=== PATIENT | female | born 1985 | race Caucasian/White ===

== ENCOUNTER 2021-04-04 13:07 | Inpatient (IN) | payer BC ==
[~2021-04-04] VITALS: Ht 162.6 cm; Wt 57.3 kg
[2021-04-04] VITALS (16 sets, daily range): BP systolic 74–111; BP diastolic 45–76
[2021-04-04] MEDS ORDERED: ondansetron/PF 4mg/2ml inj IV ONE ×2 (13:55→15:00)
[2021-04-04] MEDS ORDERED: normal saline 1000ML IV soln IVB ONE (13:55)
[2021-04-04] MEDS ORDERED: morphine 4 MG/ML inj SYRINge IV ONE ×2 (13:55→15:00)
[2021-04-04] MEDS ORDERED: ondansetron/PF 4mg/2ml inj IV PRN ×2 (14:05→14:30)
[2021-04-04] MEDS: dextrose 5%-1/2 normal saline 1,000 ML IV SCH ×2 (14:05→20:00)
[2021-04-04] MEDS ORDERED: HYDROcodone/acetaminophen 5mg/325mg tablet PO PRN ×2 (14:05→19:20)
[2021-04-04] MEDS ORDERED: acetaminophen 325mg tablet PO PRN ×2 (14:05)
[2021-04-04] MEDS ORDERED: HYDROcodone/acetaminophen 10/325mg tab PO PRN (14:05)
[2021-04-04] MEDS ORDERED: mag hydrox/Alum hydrox/simeth 30ml oral suspension PO PRN (14:05)
[2021-04-04] MEDS ORDERED: morphine 2 MG/ML inj. syringe IV PRN ×3 (14:05→14:30)
[2021-04-04] MEDS ORDERED: magnesium hydroxide 30ml (MOM) UD suspension PO PRN (14:05)
[2021-04-04] MEDS ORDERED: morphine 4 MG/ML inj SYRINge IV PRN (14:30)
[2021-04-04] MEDS ORDERED: proCHLORperazine 10 MG/2 ml inj IV PRN (14:30)
[2021-04-04] MEDS ORDERED: meperidine/PF 25mg/ml syringe IV PRN ×3 (14:30)
[2021-04-04] MEDS ORDERED: ringers solution, lacted 1,000 ML IV SCH (14:30)
[2021-04-04] MEDS ORDERED: NO HOME MEDS (14:31)
[2021-04-04] MEDS: piperacillin/tazo 4.5gm/100ml 100 ML IV SCH ×3 (15:26→20:00)
[2021-04-04] MEDS ORDERED: piperacillin/tazo 4.5gm/100ml 100 ML IV SCH (16:00)
[2021-04-04] MEDS ORDERED: LIDOcaine 1% 30ml preserv. free vial ONE (17:15)
[2021-04-04] MEDS ORDERED: BUPIVAcaine 0.5% inj/PF 30 ML ONE (17:15)
[2021-04-04] MEDS ORDERED: midazolam 1 mg/ML 2ml injection ONE (18:02)
[2021-04-04] MEDS ORDERED: fentaNYL/PF 50MCG/1 ML 2ML syringe ONE (18:02)
[2021-04-04] MEDS ORDERED: BUPIVAcaine 0.5% inj/PF 30 ml vial IJ ONE (18:15)
[2021-04-04] MEDS ORDERED: ceFOXitin 1000 MG inj ONE (18:16)
[2021-04-04] MEDS ORDERED: propofol inj 20 ML IV ONE (18:17)
[2021-04-04] MEDS ORDERED: rocuronium 10mg/ml inj IV ONE (18:17)
[2021-04-04] MEDS ORDERED: LIDOcaine 2% (20mg/ml) 5ml vial ONE (18:17)
[2021-04-04] MEDS ORDERED: ondansetron/PF 4mg/2ml inj ONE (18:18)
[2021-04-04] MEDS ORDERED: meperidine/PF 25mg/ml syringe ONE (18:43)
[2021-04-04] MEDS ORDERED: neostigmine methylsulfate 1 MG/ML 10ml vial ONE (19:02)
[2021-04-04] MEDS ORDERED: ketorolac trometh. 30mg/ml inj. ONE (19:08)
--- NOTE | 2021-04-04 19:12 | NUR ---
Received from OR via , accompanied by Anesthesiologist DR PEPE and report given by Anesthesiolgist. PT PRESENT WITH 20G LEFT FOREARM, ABD DRESSING DRY AND INTACT, VSS.
[2021-04-04] MEDS: docusate sod 100mg capsule PO SCH (20:00)
[2021-04-04] MEDS: acetaminophen 325mg tablet PO SCH (20:00)
[2021-04-04] MEDS: ketorolac trometh. 30mg/ml inj. IV SCH (20:00)
[2021-04-04] MEDS: heparin, porcine 5000 units/ml vial SQ SCH (20:00)
[2021-04-05] MEDS: piperacillin/tazo 4.5gm/100ml 100 ML IV SCH
[2021-04-05 00:30] VITALS: BP 90/88
[2021-04-05 06:21] LABS: BASOPHILS % (AUTO) 0 % (0-1); EOSINOPHILS % (AUTO) 0 % (0-6); HEMATOCRIT 33.5 % (35.0-45.0); HEMOGLOBIN 11.3 g/dl (12.0-16.0); LYMPHOCYTES # (AUTO) 0.7 X10'3 (1.1-4.8); MEAN CORPUSCULAR HGB CONC 33.7 g/dL (33.0-36.5); MEAN CORPUSCULAR VOLUME 88.9 FL (78-98); MEAN PLATELET VOLUME 8.7 FL (7.4-10.4); MONOCYTES # (AUTO) 0.4 X10'3 (0-0.9); MONOCYTES % (AUTO) 3.5 % (2-12); NEUTROPHILS # (AUTO) 9.1 X10'3 (1.8-7.7); NEUTROPHILS % (AUTO) 89.5 % (42-75); PLATELET COUNT 189 X10'3 (140-440); RED BLOOD COUNT 3.77 X10'6 (4.20-5.60); RED CELL DISTRIBUTION WIDTH 13.6 % (11.5-14.5); WHITE BLOOD COUNT 10.2 X10'3 (4.5-11.0)
--- NOTE | 2021-04-05 06:23 | NUR ---
Problems reprioritized. Patient report given, questions answered & plan of care reviewed with Natalie.
[2021-04-05 06:32] LABS: ALBUMIN 2.8 G/DL (3.4-5.0); ANION GAP 9 (8-16); BLOOD UREA NITROGEN 8 MG/DL (7-18); BUN/CREATININE RATIO 13.6 (6.6-38.0); CALCIUM 7.6 MG/DL (8.5-10.1); CHLORIDE 108 MMOL/L (99-107); CREATININE 0.59 MG/DL (0.40-0.90); GLUCOSE 119 MG/DL (70-104); POTASSIUM 3.8 MMOL/L (3.5-5.1); SODIUM 139 MMOL/L (135-145); TOTAL CARBON DIOXIDE 21.9 MMOL/L (24-32); eGFR > 90 ML/MIN
[2021-04-05 07:28] VITALS: BP 82/52
[2021-04-05] MEDS: ketorolac trometh. 30mg/ml inj. IV SCH (08:00)
[2021-04-05] MEDS: docusate sod 100mg capsule PO SCH (08:28)
[2021-04-05] MEDS: acetaminophen 325mg tablet PO SCH ×2 (08:31→15:20)
[2021-04-05] MEDS: heparin, porcine 5000 units/ml vial SQ SCH (08:34)
[2021-04-05 11:00] VITALS: BP 90/59
[2021-04-05 11:38] VITALS: BP 90/59
[2021-04-05] MEDS ORDERED: AMOX-422 PO (13:10)
--- NOTE | 2021-04-05 16:15 | NUR ---
pt DC to home with . pt is A & O x4 and in no apparent distress. pt verbalizes understanding of all DC orders. Pt has prescription called onto [facility]. Pt's IV was removed intact. pt dressed herself and was wheeled to the front where picked.
[2021-04-05] MEDS ORDERED: lactobacillus rhamnosus 10,000 MMU CELLS/CAPSULE PO SCH (20:00)
== END 2021-04-05 15:50 | disposition home or self-care (01) | DRG 340 ==
LOC: ER 13:08 → ED HOLD 14:12 → SUR 3N 20:30
PROVIDERS: ADMIT Internal Medicine; ATTEND Internal Medicine
PROC: 8E0W4CZ Robotic Assisted Procedure of Trunk Region, Percutaneous Endoscopic Approach (ICD-10-PCS; 2021-04-04)
PROC: 0DTJ4ZZ Resection of Appendix, Percutaneous Endoscopic Approach (ICD-10-PCS; principal; 2021-04-04 17:51)
DX: K35.32 Acute appendicitis with perforation, localized peritonitis, and gangrene, without abscess (principal); Z20.822 Contact with and (suspected) exposure to COVID-19
CPT/HCPCS: 96374; 96375; 99285; Z7506; Z7508; 36415; 80048; 85025; 87081; 87635; A4215; A4618; C9803; G0378; J0694; J1644; J1885; J2175; J2250; J2270; J2405; J2543; J2704; J2710; J3010; J3490; J7030; J7042; J7120; S0020